=== PATIENT | female | born 1990 | race Caucasian/White ===

== ENCOUNTER 2017-09-29 04:59 | Inpatient (IN) | payer OTHER ==
[2017-09-29] MEDS ORDERED: Nalbuphine* 20 MG/ML 1 ML VIAL IM PRN (12:25)
[2017-09-29] MEDS ORDERED: Promethazine INJ(RESTRICTED)* 25 MG/ML 1 ML VIAL IM PRN (12:25)
[2017-09-29] MEDS ORDERED: OBEPIDURAL* 250 ML ONE (15:13)
[2017-09-29 15:19] LABS: Hematocrit 36 % (35-47); Hemoglobin 11.9 g/dl (12.0-16.0); Mean Corpuscular HGB Conc 33 g/dl (31-36); Mean Corpuscular Hemoglobin 29 pg (27-31); Mean Corpuscular Volume 86 fL (80-97); Mean Platelet Volume 10 um3 (7.4-10.4); Red Blood Count 4.16 10^6/ul (4.0-5.4); Red Cell Distribution Width 14 % (10.5-15); White Blood Count 14.6 10^3/ul (3.5-10.8)
[2017-09-29] MEDS ORDERED: Phenylephrine IV* 40 MCG/ML 10 ML SYRINGE IV PUSH PRN ×2 (16:11)
[2017-09-29] MEDS ORDERED: Famotidine TAB* 20 MG PO PRN (16:11)
[2017-09-29] MEDS ORDERED: Sodium Citrate/Citric Acid* 15 ML UDC PO PRN (16:11)
[2017-09-29] MEDS ORDERED: OBEPIDURAL* 250 ML EPIDURAL SCH (17:00)
[2017-09-29] MEDS ORDERED: fentaNYL* 50 MCG/ML 2 ML VIAL (100 MCG VIAL) ONE (21:41)
[2017-09-29] MEDS ORDERED: Lidocaine 2% EPI 1:200000 MPF* 20 ML VIAL ONE (22:29)
[2017-09-30] MEDS ORDERED: fentaNYL* 50 MCG/ML 2 ML VIAL (100 MCG VIAL) ONE (01:35)
[2017-09-30] MEDS ORDERED: Oxytocin in LR* 20 UNITS/1,000 ML BAG IVPB ONE (02:51)
[2017-09-30] MEDS ORDERED: Misoprostol TAB* 200 MCG ONE (03:06)
[2017-09-30] MEDS ORDERED: Glycerin ADULT SUPP PR PRN (03:12)
[2017-09-30] MEDS ORDERED: Witch Hazel PAD* JAR TOPICAL PRN (03:12)
[2017-09-30] MEDS ORDERED: Misoprostol TAB* 200 MCG PR ONE (03:12)
[2017-09-30] MEDS ORDERED: Oxytocin in LR* 20 UNITS/1,000 ML BAG IVPB SCH (04:00)
[2017-09-30] MEDS: Ibuprofen TAB* 600 MG PO PRN ×4 (04:09→23:53)
[2017-09-30] MEDS: Dibucaine 1% 28.35 GM TUBE PR PRN ×2 (05:42→23:54)
[2017-09-30] MEDS: Acetaminophen TAB* 325 MG PO PRN ×2 (08:07→23:02)
[2017-09-30] MEDS ORDERED: Simethicone TAB* 80 MG TAB.CHEW PO SCH (08:30)
[2017-09-30] MEDS: Docusate CAP* 100 MG PO SCH ×3 (10:26→20:02)
[2017-09-30] MEDS: oxyCODONE/Acetamin 5/325 MG* TAB PO PRN (23:33)
[2017-10-01] MEDS: Ibuprofen TAB* 600 MG PO PRN ×2 (06:55→16:19)
[2017-10-01] MEDS: Docusate CAP* 100 MG PO SCH ×4 (06:56→20:49)
[2017-10-01 07:50] LABS: Hematocrit 26 % (35-47); Hemoglobin 8.5 g/dl (12.0-16.0); Mean Corpuscular HGB Conc 34 g/dl (31-36); Mean Corpuscular Hemoglobin 29 pg (27-31); Mean Corpuscular Volume 87 fL (80-97); Mean Platelet Volume 9 um3 (7.4-10.4); Red Blood Count 2.94 10^6/ul (4.0-5.4); Red Cell Distribution Width 14 % (10.5-15); White Blood Count 12.2 10^3/ul (3.5-10.8)
[2017-10-01] MEDS ORDERED: RHO D Immune Globulin (HUMAN)* 300 MCG = 1,500 I.U. INJ IM ONE (08:01)
[2017-10-01] MEDS: Ferrous Gluconate TAB* 324 MG TAB PO SCH ×2 (08:24→20:50)
--- NOTE | 2017-10-01 08:31 | PTEDU ---
Patient Name: MYNOR QIU LAZARUSMYNOR selected video: Never Ever [email or web address] [id number] Baby to view on 10/01/2017 at 8:30:41 AM from [id number]
[2017-10-01] MEDS: oxyCODONE/Acetamin 5/325 MG* TAB PO PRN (12:00)
[2017-10-01] MEDS: Acetaminophen TAB* 325 MG PO PRN (20:49)
[2017-10-02] MEDS: Ibuprofen TAB* 600 MG PO PRN ×2 (00:27→08:29)
[2017-10-02] MEDS: Ferrous Gluconate TAB* 324 MG TAB PO SCH (08:25)
[2017-10-02] MEDS: Docusate CAP* 100 MG PO SCH (08:28)
[2017-10-02 09:24] VITALS: BP 95/58
== END 2017-10-02 11:33 | disposition home or self-care (01) | DRG 775 ==
LOC: MCHOBOUT 04:59 → MCHOB 06:47
PROVIDERS: ADMIT Obstetrics & Gynecology; ATTEND Obstetrics & Gynecology
PROC: 10E0XZZ Delivery of Products of Conception, External Approach (ICD-10-PCS; principal; 2017-09-29)
PROC: 4A1HXCZ Monitoring of Products of Conception, Cardiac Rate, External Approach (ICD-10-PCS; 2017-09-29)
PROC: 0W8NXZZ Division of Female Perineum, External Approach (ICD-10-PCS; 2017-09-29)
DX: O90.81 Anemia of the puerperium (principal); D64.9 Anemia, unspecified; Z37.0 Single live birth; Z88.0 Allergy status to penicillin; Z3A.39 39 weeks gestation of pregnancy; Z67.41 Type O blood, Rh negative
CPT/HCPCS: 36415; 85025; 85461; 86850; 86870; 86880; 86900; 86901; A9270-GY; J2300; J2550; J2790; J3010